=== PATIENT | male | born 1945 | race Two or more races ===

== ENCOUNTER 2024-03-08 13:28 | Emergency (ER) | payer OTHER ==
[~2024-03-08] VITALS: Ht 175.3 cm; Wt 71.7 kg
[2024-03-08] MEDS ORDERED: ATORVASTATIN CA10 MG PO (13:49)
[2024-03-08] MEDS ORDERED: CHILDREN'S ASPI81 MG PO (13:49)
[2024-03-08 14:47] LABS: HEMATOCRIT 39.1 % (39.0-48.0); HEMOGLOBIN 13.3 g/dL (13-16.00); MEAN CORPUSCULAR HEMOGLOBIN 33.6 pg (27.00-32.0); MEAN CORPUSCULAR HGB CONC 33.9 g/dl (32.0-36.0); RED BLOOD COUNT 3.95 M/uL (4.00-6.00); RED CELL DISTRIBUTION WIDTH 15.1 % (11.5-14.5)
[2024-03-08 14:50] LABS: CALCIUM 8.6 mg/dL (8.5-10.1); CREATININE SERUM 1.27 mg/dL (0.70-1.30); GFR 54.56; POTASSIUM 4.02 mEq/L (3.5-5.1)
[2024-03-08 15:05] LABS: PLATELET COUNT 125 K/uL (150-450)
== END 2024-03-08 15:35 | disposition home or self-care (01) ==
LOC: ER 13:30
PROVIDERS: General Practice
DX: R42 Dizziness and giddiness (principal); M79.605 Pain in left leg; M79.604 Pain in right leg; I10 Essential (primary) hypertension; I50.9 Heart failure, unspecified; Z91.030 Bee allergy status